=== PATIENT | male | born 1945 | race Caucasian/White ===

== ENCOUNTER → 2017-08-12 | Outpatient (CLI) | payer MEDICARE, OTHER ==
[2015-02-26 14:51] VITALS: BP 151/79
[~2017-08-12] MED LIST: ASPI325T8 PO; LISI-338 PO; METO50TA29 PO; OMEP20CA9 PO; SIMV40TA3 PO
--- NOTE | 2017-08-12 10:09 | RAD ---
CHEST PA LATERAL Technique: PA and lateral views of the chest were obtained. Clinical History: CHEST CONGESTION W PROD COUGH X 1 DAY, BURNING PAIN Comparison: None. Findings: The heart and pulmonary vasculature appear within normal limits. Mild prominent appearing bilateral interstitial lung markings could be chronic interstitial changes or bronchitis.. The pleural margins are clear. Impression: Mild prominent appearing bilateral interstitial lung markings could be chronic interstitial changes of bronchitis.
== END | disposition home or self-care (01) ==
LOC: DXRADRC 09:00
PROVIDERS: ATTEND Physician Assistant Medical
DX: R09.89 Other specified symptoms and signs involving the circulatory and respiratory systems (principal); R05 Cough
CPT/HCPCS: 71020

== ENCOUNTER → 2017-11-19 | Outpatient (CLI) | payer OTHER ==
[2015-02-26 14:51] VITALS: BP 151/79
[~2017-11-19] MED LIST changes: +BARIUM SULFATE 2.1% 450 ML SUSP PO ONE; +IOHEXOL 240 MG/ML 50ML VIAL. ONE
[2017-11-19 09:39] LABS: BASO # 0.1 x10^3/uL (0.0-0.2); BASO % 1 % (0-3); EOS # 0.3 x10^3/uL (0.0-0.7); EOS % 2 % (0-3); HEMATOCRIT 40.3 % (39.0-53.0); LYMPH # 1.3 x10^3/uL (1.0-4.8); LYMPH % 8 % (24-48); MEAN CORPUSCULAR HEMOGLOBIN 32 pg (25-35); MEAN CORPUSCULAR HGB CONC 35 g/dL (31-37); MEAN CORPUSCULAR VOLUME 93 fL (79-100); MONO # 1.4 x10^3/uL (0.0-1.1); MONO % 9 % (0-9); NEUT # 13.5 x10^3uL (1.8-7.7); NEUT % 81 % (31-73); PLATELET COUNT 267 x10^3/uL (140-400); RED BLOOD COUNT 4.33 x10^6/uL (4.30-5.70); RED CELL DISTRIBUTION WIDTH 12.6 % (11.5-14.5); WHITE BLOOD COUNT 16.7 x10^3/uL (4.0-11.0)
[2017-11-19 09:49] LABS: ALBUMIN 3.4 g/dL (3.4-5.0); ALBUMIN/GLOBULIN RATIO 0.8 (1.0-1.7); CALCIUM 8.9 mg/dL (8.5-10.1); CREATININE 1.3 mg/dL (0.7-1.3); GFR 54.7; POTASSIUM 4.6 mmol/L (3.5-5.1); TOTAL BILIRUBIN 0.3 mg/dL (0.2-1.0); TOTAL PROTEIN 7.7 g/dL (6.4-8.2)
[2017-11-19 10:11] LABS: % BANDS 3 % (0-9); % EOS 1 % (0-5); % LYMPHS 9 % (24-48); % MONOS 8 % (0-10); % SEGS 79 % (35-66); PLT ESTIMATE ADEQUATE (ADEQUATE)
--- NOTE | 2017-11-19 12:08 | RAD ---
INDICATION: Left-sided abdominal pain COMPARISON: None. TECHNIQUE: Axial CT images were obtained through the abdomen and pelvis without intravenous contrast. Coronal reformations were processed. FINDINGS: Partial visualization of coronary artery calcific atherosclerosis. Moderate calcific atherosclerosis. Fat-containing left greater than right inguinal hernia. Liver is mildly low attenuation. No definite peripancreatic edema. There is some mild haziness to the mesentery with some mildly enlarged lymph nodes. There is either a subcentimeter low-density splenic lesion or a cleft. No left-sided hydronephrosis. There is some mild haziness adjacent to the urinary bladder. Suspected subcentimeter exophytic right renal lesion. No right-sided hydronephrosis. Calcifications within the mildly prominent prostate. Colonic diverticulosis. Appendix does not appear inflamed. No dilated loops of bowel to suggest obstruction. Degenerative changes of spine. IMPRESSION: 1. There is some prominence of the wall of the urinary bladder with adjacent haziness of the fat. Would correlate for possible causes such as cystitis. Additionally a follow-up examination or cystoscopy could be obtained after treatment to ensure resolution to exclude neoplastic causes. 2. Calcific atherosclerosis. 3. Mild haziness of the mesentery with enlarged lymph nodes. This is nonspecific in nature and can be seen with causes such as mesenteric adenitis but would consider obtaining a follow-up CT in a few months to ensure no growth to exclude neoplastic causes. 4. Exophytic right renal lesion. Cannot exclude a complex component on noncontrast CT. If more complete characterization is desired renal protocol ultrasound could be obtained to further evaluate 5. Probable nonobstructive left greater than right renal stones. PQRS Compliance Statement: One or of the following individualized dose reduction techniques were utilized for this examination: 1. Automated exposure control 2. Adjustment of the mA and/or kV according to patient size 3. Use of iterative reconstruction technique
== END | disposition home or self-care (01) ==
LOC: PMG 08:39
PROVIDERS: ATTEND Physician Assistant Medical
DX: N41.0 Acute prostatitis (principal); R10.32 Left lower quadrant pain; N28.9 Disorder of kidney and ureter, unspecified; I70.0 Atherosclerosis of aorta
CPT/HCPCS: 36415; 74176; 80053; 85007; 85025; Q9966; 74177

== ENCOUNTER → 2017-11-22 | Outpatient (CLI) | payer OTHER ==
[2015-02-26 14:51] VITALS: BP 151/79
[~2017-11-22] MED LIST changes: -BARIUM SULFATE 2.1% 450 ML SUSP PO ONE; -IOHEXOL 240 MG/ML 50ML VIAL. ONE
--- NOTE | 2017-11-22 12:55 | RAD ---
INDICATION: Follow-up of possible renal lesion seen on CT COMPARISON: November 19, 2017 TECHNIQUE: Grayscale and color ultrasound images obtained of the bilateral kidneys and bladder. FINDINGS: Right Kidney: 13.7 cm. No hydronephrosis. Left Kidney: 11.3 cm. No hydronephrosis. Bladder: Prevoid 302 cc with postvoid 196 cc 21 mm cystic lesion right kidney seen centrally. IMPRESSION: There is a small cystic lesion seen near the right renal hilum. The lesion in question seen on recent CT is not well visualized on ultrasound. Given that it is not well seen on ultrasound if further clarification is desired at this time CT or MRI renal protocol could further evaluate. Alternatively a follow-up examination could be obtained in a few months with CT to ensure no growth. The patient has approximately 196 cc of post void residual urine within the bladder. Correlate for symptoms of incomplete emptying.
== END | disposition home or self-care (01) ==
LOC: US 10:21
PROVIDERS: ATTEND Physician Assistant Medical
DX: Q61.9 Cystic kidney disease, unspecified (principal)
CPT/HCPCS: 76770

== ENCOUNTER → 2020-08-30 | Outpatient (CLI) | payer OTHER ==
[2015-02-26 14:51] VITALS: BP 151/79
[~2020-08-30] MED LIST changes: +OMEP20CA16 PO; -OMEP20CA9 PO; +SIMV40TA18 PO; -SIMV40TA3 PO
--- NOTE | 2020-08-30 15:13 | RAD ---
Examination: SHOULDER 2+V RIGHT History: Reason: SHOULDER PAIN X1 MONTH, NO INJURY / Spl. Instructions: / History: Comparison/Correlation: None Findings: Total of 3 views of right shoulder were obtained. The glenohumeral joint is unremarkable. Postoperative resection of the distal right clavicle noted. Soft tissues are unremarkable. Impression: No acute process. Electronically signed by: Denny Francis MD (08/30/2020 3:10 PM) [facility]
== END ==
LOC: RAD 11:46
PROVIDERS: ATTEND Physician Assistant Medical
DX: M25.511 Pain in right shoulder (principal)
CPT/HCPCS: 73030

== ENCOUNTER → 2021-01-30 | Outpatient (CLI) | payer OTHER ==
[2015-02-26 14:51] VITALS: BP 151/79
[~2021-01-30] MED LIST changes: -LISI-338 PO; +LISI-517 PO
--- NOTE | 2021-01-30 16:23 | RAD ---
EXAM: 3 Views Right Shoulder DATE: 01/30/2021 3:00 PM INDICATION: Reason: / Spl. Instructions: / History: COMPARISON: 12/20/2020 08/30/2020 FINDINGS: There is no evidence for acute fracture. Changes of prior coracoclavicular reduction and fixation, no w with interval displacement of the coracoid anchor and associated acromioclavicular widening. Coraco clavicular interval measures approximately 2.3 cm. 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 IMPRESSION: 1. Postoperative changes of coracoclavicular reduction internal fixation with interval displacement of the coracoid anchor and widening of the acromioclavicular joint Electronically signed by: Deondre Mcneal MD (01/30/2021 4:21 PM) [facility]
== END ==
LOC: DXRAD 14:51
PROVIDERS: ATTEND Physician Assistant
DX: Z96.611 Presence of right artificial shoulder joint (principal)
CPT/HCPCS: 73030

== ENCOUNTER → 2021-05-05 | Outpatient (CLI) | payer OTHER ==
[2015-02-26 14:51] VITALS: BP 151/79
--- NOTE | 2021-05-05 16:35 | RAD ---
XR LUMBAR SPINE 4+V History: Reason: FELL, LOW BACK PAIN / Spl. Instructions: / History: Technique: 5 views lumbar spine. Comparison: None. Findings: Transitional lumbosacral anatomy with lumbarization of S1. Normal vertebral body height and alignment . No fracture. Moderate multilevel degenerative disc changes most prominent L4-5 and L5-S1. Facet art hropathy. Impression: 1. Moderate multilevel lumbar spondylosis. Electronically signed by: Jordan Mendoza DO (05/05/2021 4:33 PM) [id number]
== END ==
LOC: RAD 10:47
PROVIDERS: ATTEND Physician Assistant Medical
DX: M47.817 Spondylosis without myelopathy or radiculopathy, lumbosacral region (principal)
CPT/HCPCS: 72110

== ENCOUNTER → 2022-02-12 | Outpatient (CLI) | payer OTHER ==
[2015-02-26 14:51] VITALS: BP 151/79
[~2022-02-12] MED LIST changes: -LISI-517 PO; +LISI5TAB15 PO
--- NOTE | 2022-02-13 02:41 | RAD ---
EXAMINATION: XR CHEST 2V CLINICAL HISTORY: Cough. EXAM DATE/TIME: 02/12/2022 1:40 PM COMPARISON: 11/29/2020 FINDINGS: Lines, Tubes, and Devices: None. Cardiomediastinal Silhouette: Normal heart size. Aortic atherosclerotic calcification. Lungs and Pleura: No evidence of focal airspace consolidation or pleural effusion. Mild bibasilar sub segmental atelectasis and/or scarring. Nonspecific interstitial prominence, similar to prior study an d likely chronic. Bones and Soft Tissues: Degenerative changes in the thoracic spine. Partially visualized right revers e total shoulder arthroplasty. IMPRESSION: No evidence of acute cardiopulmonary abnormality. Electronically signed by: Mu Starr DO (02/13/2022 2:39 AM) [facility]
== END ==
LOC: RAD 13:33
PROVIDERS: ATTEND Physician Assistant Medical
DX: R05.9 Cough, unspecified (principal); M47.814 Spondylosis without myelopathy or radiculopathy, thoracic region; Z96.611 Presence of right artificial shoulder joint
CPT/HCPCS: 71046